=== PATIENT | female | born 1960 | race African-American/Black ===

== ENCOUNTER 2018-04-20 05:28 | Day surgery (SDC) | payer OTHER ==
[2018-04-20] VITALS (14 sets, daily range): BP systolic 125–145; BP diastolic 73–80
[~2018-04-20] VITALS: Ht 180.3 cm; Wt 96.6 kg
[2018-04-20] MEDS ORDERED: Clindamycin 600mg 50 ML IV ONE (06:00)
[2018-04-20] MEDS ORDERED: celeBREX 200mg Cap **SURGERY PATIENTS ONLY ORAL ONE ×2 (06:00→07:46)
[2018-04-20] MEDS ORDERED: oxyCONTIN 20mg tab ORAL ONE ×2 (06:00→07:45)
--- NOTE | 2018-04-20 07:14 | Operative Note - PDOC ---
Operative Note Operative Note Pre-op Diagnosis: left knee medial meniscus tear Procedure: see op report Post-op Diagnosis: same as pre-op plus Operative Findings: consistent w/pre-op dx studies Anesthesia: MAC Specimen: none Complications: none Condition: stable Estimated Blood Loss: none Implant(s) used?: No Ebenezer Clayton MD Apr 20, 2018 07:14
--- NOTE | 2018-04-20 07:14 | Pre-Procedure Note/Attestation ---
Pre-Procedure Note/Attestation Complete Prior to Procedure Planned Procedure: left Procedure Narrative: knee arthroscopic medial menisectomy Indications for Procedure Pre-Operative Diagnosis: left knee medial meniscus tear Attestation I attest that I discussed the nature of the procedure; its benefits; risks and complications; and alternatives (and the risks and benefits of such alternatives ), prior to the procedure, with the patient (or the patient's legal patient accounting representative). I attest that, if there was a reasonable possibility of needing a blood transfusion, the patient (or the patient's legal patient accounting representative) was given the [facility] standardized written summary, pursuant to the [place] Blood Safety Act ([place] Health and Safety Code # 1645, as amended). I attest that I re-evaluated the patient just prior to the surgery and that there has been no change in the patient's H&P, except as documented below: Ebenezer Clayton MD Apr 20, 2018 07:14
[2018-04-20] MEDS ORDERED: Morphine Sulfate PF 10 ML ONE (07:35)
[2018-04-20] MEDS ORDERED: Kenalog-40 1ml Vial ONE (07:35)
[2018-04-20] MEDS ORDERED: Bupivacaine 0.5% Inj 30 ml vial INJ ONE (07:36)
[2018-04-20] MEDS ORDERED: Lidocaine 1% 10mg/ml/Epi 0.005mg/ml 30ml vial INJ ONE (07:36)
[2018-04-20] MEDS ORDERED: Ketorolac 30mg Inj ONE (07:36)
[2018-04-20] MEDS ORDERED: Clindamycin 0 ML ONE (07:54)
[2018-04-20] MEDS ORDERED: ALPRAZOLAM0.5 MG PO (08:00)
[2018-04-20] MEDS ORDERED: LIDOCAIN (08:00)
[2018-04-20] MEDS ORDERED: Propofol 200mg/20ml IV ONE ×2 (08:18→08:27)
[2018-04-20] MEDS ORDERED: Lidocaine 1% MPF 10mg/ml 5ml ONE ×2 (08:18→08:27)
[2018-04-20] MEDS ORDERED: Dexamethasone 4mg/ml vial ONE (08:27)
[2018-04-20] MEDS ORDERED: Sodium Chloride 10ml vial INJ ONE (08:27)
[2018-04-20] MEDS ORDERED: fentaNYL 100 mcg/2 mL IV ONE (08:28)
[2018-04-20] MEDS ORDERED: LR 1000ml 1,000 ML IVLG SCH (08:46)
[2018-04-20] MEDS: Bupivacaine w/Epi 0.25% 30ml Vial INJ ONE ×2 (08:54→08:55)
[2018-04-20] MEDS ORDERED: Duramorph PF 10mg/10ml amp EPIDUR ONE (08:54)
--- NOTE | 2018-04-20 08:55 | Anethesia Preoperative Eval ---
Anesthesia Pre-op PMH/ROS General Date of Evaluation: Apr 20, 2018 Time of Evaluation: 08:19 Anesthesiologist: Kat ASA Score: ASA 2 Mallampati Score Class I : Soft palate, uvula, fauces, pillars visible Class II: Soft palate, uvula, fauces visible Class III: Soft palate, base of uvula visible Class IV: Only hard plate visible Mallampati Classification: Class II Surgeon: Forrest Surgical Procedure: L Knee Arthroscopy Anesthesia History: none, other - Hemiplegia post Anesthesia Family History: no anesthesia problems Allergies: Coded Allergies: LATEX (Verified Allergy, Severe, 04/19/18) WELTS NICKEL (Verified Allergy, Severe, 04/19/18) PT HAD ARRYHTMIA PENICILLINS (Verified Allergy, Severe, 04/19/18) VOMITING VITAMIN E (D-ALPHA TOCOPHEROL) (Verified Allergy, Severe, 04/19/18) TOPICAL-EYES SWELLS UP AND SKIN GETS RED, ORAL -SEVERE NAUSEA. Uncoded Allergies: SULFA (Allergy, Severe, 04/19/18) SKIN RASH,BLISTER Medications: see eMAR Patient NPO?: Yes Past Medical History Hematology/Immune: Reports: anemia Other: obesity PSxH Narrative: PFO Repair, R Bunion Repair, B Shoulder Arthroscopy Anesthesia Pre-op Phys. Exam Physician Exam Last Vital Signs Date Time Temp Pulse Resp B/P (MAP) Pulse Ox O2 Delivery O2 Flow Rate FiO2 04/20/18 07:45 Room Air 04/20/18 07:40 97.1 18 18 134/78 100 97.1 Constitutional: NAD Neurologic: CN 2-12 intact Cardiovascular: RRR Respiratory: CTA Gastrointestinal: S/NT/ND Airway Exam Mallampati Score: Class II MO: full ROM: full Teeth: intact Anesthesia Pre-op A/P Risk Assessment & Plan Assessment: ASA 2 Plan: GA Status Change Before Surgery: No Pre-Antibiotics Dru Gram Ancef IV Given Within 1 Hr of Incision: Yes Time Given: 08:33 Jv Stephens MD Apr 20, 2018 08:55
--- NOTE | 2018-04-20 08:59 | 48 Hour Post Anesthesia Eval ---
Post Anesthesia Evaluation Procedure: L Knee Arthroscopy Date of Evaluation: Apr 20, 2018 Time of Evaluation: 11:42 Blood Pressure Systolic: 126 0: 78 Pulse Rate: 76 Respiratory Rate: 18 Temperature (Fahrenheit): 98.2 O2 Sat by Pulse Oximetry: 97 Airway: patent Nausea: No Vomiting: No Pain Intensity: 2 Hydration Status: adequate Cardiopulmonary Status: Stable Mental Status/LOC: patient returned to baseline Follow-up Care/Observations: 0 Post-Anesthesia Complications: 0 Follow-up care needed: ready to discharge Jv Stephens MD Apr 20, 2018 08:59
--- NOTE | 2018-04-20 08:59 | Immediate Post-Op Evaluation ---
Immediate Post-Op Evalulation Immediate Post-Op Evalulation Procedure: L Knee Arthroscopy Date of Evaluation: Apr 20, 2018 Time of Evaluation: 09:39 IV Fluids: 800 LR Blood Products: 0 Estimated Blood Loss: 2 Urinary Output: 0 Blood Pressure Systolic: 140 Blood Pressure Diastolic: 80 Pulse Rate: 81 Respiratory Rate: 16 O2 Sat by Pulse Oximetry: 100 Temperature (Fahrenheit): 97.8 Pain Score (1-10): 2 Nausea: No Vomiting: No Complications 0 Patient Status: awake, reacts, patent, none Hydration Status: adequate Dru Gram Ancef IV Given Within 1 Hr of Incision: Yes Time Given: 08:33 Jv Stephens MD Apr 20, 2018 08:59
[2018-04-20] MEDS ORDERED: Atropine Sulfate 0.4mg/ml inj IVP PRN (09:00)
[2018-04-20] MEDS ORDERED: Midazolam 2mg/2ml Inj IVP PRN (09:00)
[2018-04-20] MEDS ORDERED: Ketorolac 30mg Inj IV PRN ×2 (09:00)
[2018-04-20] MEDS ORDERED: Norco 5mg/325mg tab ORAL PRN ×2 (09:00→14:01)
[2018-04-20] MEDS ORDERED: NS Irrig 1000ml ONE (09:00)
[2018-04-20] MEDS ORDERED: Sterile Water Irrig 1000ml IRRIG ONE (09:00)
[2018-04-20] MEDS ORDERED: DiphenhydrAMINE 50mg/ml Inj IVP PRN (09:00)
[2018-04-20] MEDS ORDERED: LORazepam Inj 2mg/ml 1ml IV PRN (09:00)
[2018-04-20] MEDS ORDERED: Meperidine 50mg/ml Inj(FOR RIGORS ONLY) IVP PRN (09:00)
[2018-04-20] MEDS ORDERED: fentaNYL 100 mcg/2 mL IV PRN (09:00)
[2018-04-20] MEDS ORDERED: NS Irrig 4000ml IRRIG ONE (09:00)
[2018-04-20] MEDS ORDERED: HYDROcodone/Acetamin 7.5/325 tab ORAL PRN (09:00)
[2018-04-20] MEDS ORDERED: LR 1000ml ONE (09:00)
[2018-04-20] MEDS ORDERED: Metoclopramide 10mg/2ml Inj IVP PRN (09:00)
[2018-04-20] MEDS ORDERED: oxyCODONE HCL/Acetaminophen 5/325mg ORAL PRN (09:00)
[2018-04-20] MEDS ORDERED: Hydromorphone 0.5mg/0.5ml inj IVP PRN (09:00)
[2018-04-20] MEDS ORDERED: D5 1/2NS 1,000 ML IV SCH (14:01)
[2018-04-20] MEDS ORDERED: Tylenol #3 tab (300mg/30mg) ORAL PRN (14:01)
[2018-04-20] MEDS ORDERED: HYDROmorphone 1mg/ml Carpuject SUBQ PRN (14:01)
[2018-04-20] MEDS ORDERED: VITAMIN D32000 UNI3 PO (15:42)
[2018-04-20] MEDS ORDERED: CETIRIZINE HCL10 MG PO (15:42)
[2018-04-20] MEDS ORDERED: AZELASTINE137 MCG/0. NS (15:42)
[2018-04-20] MEDS ORDERED: KRILL OIL500 MG PO (15:42)
[2018-04-20] MEDS ORDERED: PROBIOTIC1 EAC5 PO (15:42)
[2018-04-20] MEDS ORDERED: NORCO 5-325 TA1 EACH ORAL (15:42)
[2018-04-20] MEDS ORDERED: BLACK COHOSH540 MG PO (15:42)
[2018-04-20] MEDS ORDERED: BIOTIN2500 MCG PO (15:42)
[2018-04-20] MEDS ORDERED: ZOMIG5 MG ORAL (15:42)
[2018-04-20] MEDS ORDERED: MAGNESIUM400 M2 PO (15:42)
[2018-04-20] MEDS ORDERED: GARCINIA CAMBO1 EACH PO (15:42)
--- NOTE | 2018-04-20 22:00 | Operative Note - Dictated ---
DATE OF OPERATION: 04/20/2018 PREOPERATIVE DIAGNOSIS: Left knee internal derangement secondary to chondral damage. POSTOPERATIVE DIAGNOSES: 1. Grade 3 chondral damage, medial and lateral patellar facets. 2. Multiple intraarticular loose bodies. 3. Hypertrophic fat pad/medial plica. PROCEDURES: 1. Right knee diagnostic arthroscopy. 2. Excision of medial plica/fat pad. 3. Removal of intraarticular loose bodies. SURGEON: Ebenezer Clayton M.D. ANESTHESIA: MAC with local. INDICATION FOR PROCEDURE: The patient is a pleasant female with progressive left knee pain. MRI showed there was some chondral damage. She failed conservative treatment. She still had continued anterior knee pain. Therefore, elected to undergo left knee diagnostic arthroscopy and possible chondroplasty with synovectomy. Risks, limitations, expectations, and complications of the procedure were discussed in detail. All questions addressed. DESCRIPTION OF PROCEDURE: After informed consent was obtained, the patient was brought to the operating room and placed under monitored anesthesia control. Tourniquet was applied to left proximal thigh. Left leg was prepped and draped in a sterile manner. Time-out was performed. The port sites were injected with 1% lidocaine with epinephrine. Esmarch was used to exsanguinate the extremity. Inferolateral stab incision was then made. Trocar was introduced into the suprapatellar pouch. There was significant intraarticular loose bodies floating around the knee. There was significant hypertrophic fat pad as well as medial plica. Medial compartment was entered. Medial working portal was established. The excision of the plica and fat pad was performed to better visualize the medial compartment. The meniscus was probed noted to be intact. There was no chondral damage in medial compartment. Intercondylar notch was entered. The hypertrophic ligamentum mucosa, which was debrided to visualize the ACL left including the lateral compartment. ACL was probed and noted to be intact. Lateral compartment was entered, free of any meniscal chondral damage. Camera was then placed in the patellofemoral compartment and excision of the fat pad was continued. Once that was done, gentle chondroplasty of the medial and lateral facets was performed. Once that was done, camera was placed in the medial working portal and excision of the fat pad, synovial tissue, and lateral compartment gutter was completed. The camera was then repositioned. Patellofemoral compartment and a chondroplasty of the lateral facet was also completed. Once that was done, the instruments were removed. Portal sites were closed with 3-0 Monocryl sutures. Steri-Strips and a sterile dressing were applied. The patient was awakened and taken to recovery room with stable vital signs. ESTIMATED BLOOD LOSS: None. COMPLICATIONS: None. SPECIMENS: None. IMPLANTS: None. Ebenezer Clayton M.D. DR: MINH JOB#: [id number] CC:
== END 2018-04-20 12:25 | disposition home or self-care (01) ==
LOC: SUR 05:28
DX: M23.92 Unspecified internal derangement of left knee (principal); M23.42 Loose body in knee, left knee; M79.4 Hypertrophy of (infrapatellar) fat pad; M67.52 Plica syndrome, left knee; F41.9 Anxiety disorder, unspecified; G43.909 Migraine, unspecified, not intractable, without status migrainosus; Q21.1 Atrial septal defect; E66.9 Obesity, unspecified; D64.9 Anemia, unspecified; Z91.040 Latex allergy status; Z88.0 Allergy status to penicillin; Z88.2 Allergy status to sulfonamides; Z91.048 Other nonmedicinal substance allergy status; Z87.442 Personal history of urinary calculi
CPT/HCPCS: 29875; 97161; J0690; J1100; J1885; J2250; J2274; J2405; J2704; J3010; J3301; J3490; 94003; 94150; S0077